=== PATIENT | male | born 1955 | race Caucasian/White ===

== ENCOUNTER 2017-03-29 13:20 | Inpatient (IN) | payer OTHER ==
[~2017-03-29 13:20] MED LIST: FAMOTIDINE 20 MG TABLET PO PRN; HYDROcod/ACETAM 5/325 MG TABLET PO PRN; ONDANSETRON ODT 4 MG TABLET TL PRN; SODIUM CHLORIDE FLUSH 0.9% 10 ML SYRINGE IVP PRN; oxyCODONE 5 MG TABLET PO PRN
[2017-03-29] MEDS ORDERED: HYDROmorphone 1 MG/ML SYRINGE IVP STA ×3 (14:38→22:16)
[2017-03-29] MEDS ORDERED: KETOROLAC 60 MG/2 ML VIAL IVP STA (14:38)
[2017-03-29 14:54] LABS: BASOPHILS % (AUTO) 0.3 %; EOSINOPHILS # (AUTO) 0.1 10^3/uL (0.0-0.7); EOSINOPHILS % (AUTO) 1.6 %; HCT - HEMATOCRIT 39.7 % (42.0-52.0); HGB - HEMOGLOBIN 13.8 g/dL (14.0-18.0); LYMPHOCYTES # (AUTO) 1.3 10^3/uL (1.5-3.5); LYMPHOCYTES % (AUTO) 20.9 %; MEAN CORPUSCULAR HEMOGLOBIN 32.6 pg (27.0-31.0); MEAN CORPUSCULAR HGB CONC 34.8 g/dL (32.0-36.0); MEAN CORPUSCULAR VOLUME 93.6 fL (80.0-94.0); MEAN PLATELET VOLUME 7.9 fL (7.4-11.4); MONOCYTES # (AUTO) 0.7 10^3/uL (0.0-1.0); MONOCYTES % (AUTO) 10.9 %; NEUTROPHILS # (AUTO) 4.2 10^3/uL (1.5-6.6); NEUTROPHILS % (AUTO) 66.3 %; RED BLOOD COUNT 4.24 10^6/uL (4.70-6.10); RED CELL DISTRIBUTION WIDTH 12.5 % (12.0-15.0); UNCORRECTED WHITE BLOOD COUNT 6.3 x10^3/uL; WHITE BLOOD COUNT 6.3 x10^3/uL (4.8-10.8)
[2017-03-29 15:06] LABS: ALBUMIN/GLOBULIN RATIO 1.2 (1.0-2.2); BILIRUBIN,TOTAL 1.5 mg/dL (0.2-1.0); CALCIUM 9.5 mg/dL (8.5-10.3); POTASSIUM 4.3 mmol/L (3.5-5.0); TOTAL PROTEIN 7.6 g/dL (6.7-8.2)
--- NOTE | 2017-03-29 15:31 | XRAY Preliminary Report ---
Exam: XR Chest 2 View PA/LAT IMPRESSION: Small left pleural effusion and mild left base airspace disease which could represent ate lectasis or pneumonia. [facility] SITE ID: [id number]
--- NOTE | 2017-03-29 15:33 | XRAY Report ---
EXAM: CHEST RADIOGRAPHY EXAM DATE: 03/29/2017 03:10 PM. CLINICAL HISTORY: LEFT SIDED CHEST PAIN. COMPARISON: None. TECHNIQUE: 2 views. FINDINGS: Lungs/Pleura: Small left pleural effusion and mild left base airspace disease. Mediastinum: Heart and mediastinal contours are unremarkable. IMPRESSION: Small left pleural effusion and mild left base airspace disease which could represent ate lectasis or pneumonia. [facility] Referring Provider Line: [phone] SITE ID: [id number]
[2017-03-29] MEDS ORDERED: KETOROLAC 30 MG/ML VIAL ONE (16:01)
[2017-03-29] MEDS ORDERED: IOPAMIDOL-300 100 ML VIAL IVP ONE (16:52)
--- NOTE | 2017-03-29 17:17 | CT Preliminary Report ---
Exam: CT Chest Angio (PE) IMPRESSION: 1. Positive for multiple subsegmental emboli, right more than left. Overall [id number] amount of clot burden. 2. Small bilateral pleural based densities, probably atelectatic, with small left pleural effusion. 3. Mildly prominent ascending thoracic aorta. [facility] The above critical findings were discussed with Dr. Bustamante by Dr. Jamie Starr at 17:15 hrs on 03/29/17. SITE ID: [id number]
--- NOTE | 2017-03-29 17:19 | CT Report ---
EXAM: CT ANGIOGRAM CHEST EXAM DATE: 03/29/2017 04:39 PM. CLINICAL HISTORY: Pain, short of breath. COMPARISON: None. TECHNIQUE: Routine helical imaging was performed through the chest in the pulmonary arterial phase. I V Contrast: 80 cc Isovue 300. Reconstructions: Sagittal, coronal, and 3-D MIP. In accordance with CT protocol optimization, one or more of the following dose reduction techniques w ere utilized for this exam: automated exposure control, adjustment of mA and/or KV based on patient s ize, or use of iterative reconstructive technique. FINDINGS: Pulmonary Arteries: Diagnostic quality: Adequate through the segmental arteries. Multiple subsegmental emboli, predominan tly on the right, with small amount of left lower lobe involvement as well. No large or central lesio ns. RV/LV is within normal limits. There is no interventricular septal bowing. There is mild reflux of co ntrast material in the IVC. Lungs/Pleura: Small bilateral pleural-based densities, left more than right. Otherwise unremarkable. Small left pleural effusion. No right effusion or pneumothorax. Mediastinum: Normal overall heart size. No pericardial effusion. No coronary artery calcification. No definite lymphadenopathy. Thoracic Aorta: Mild prominence of ascending thoracic aorta measuring 3.7 cm. Upper Abdomen: Unremarkable. Other: None. IMPRESSION: 1. Positive for multiple subsegmental emboli, right more than left. Overall [id number] amount of clot burden. 2. Small bilateral pleural based densities, probably atelectatic, with small left pleural effusion. 3. Mildly prominent ascending thoracic aorta. [facility] The above critical findings were discussed with Dr. Bustamante by Dr. Jamie Starr at 17:15 hrs on 03/29/17. Referring Provider Line: [phone] SITE ID: [id number]
[2017-03-29] MEDS ORDERED: ENOXAPARIN 100 MG/ML SYRINGE SUBQ STA (17:36)
[2017-03-29] MEDS ORDERED: SODIUM CHLORIDE 0.9% 1,000 ML IV ONE (18:04)
--- NOTE | 2017-03-29 18:08 | ED Physician Documentation ---
History of Present Illness - Stated complaint Stated Complaint: ACUTE L SIDE PAIN,DIFF BREATHING - Chief complaint Chief Complaint: Cardiac - History obtained from History obtained from: Patient, Family - Additonal information Additional information: This patient is a 61-year-old male who presents complaint of left-sided chest pain. He had the onset at this point pain on Wednesday. It is a pleuritic pain worse with taking a deep breath. He feels as if he cannot take in adequate amount of air as well. There is no pressure heavy component he has not had any nausea, vomiting, constipation, diarrhea or lower urinary symptoms. There is no complaint of productive cough that he does not have a fever. He had pleurisy many years ago and it feels similar. The patient drove from [place] to [facility] before having the onset of symptoms on Wednesday. He did fly back to [place] over the weekend then returned also by airplane. He denies any leg pain or swelling. He has no significant past medical history. Review of systems: For pertinent positive and negatives in the review of systems please see the history of present illness, otherwise all other systems have been reviewed and are negative. Dragon disclaimer: Parts of this medical record were created using voice recognition technology. Because of the inherent limitations of this system, occasional same sounding word substitutions do occur and persist despite proofreading. Please read the document for context. Review of Systems Constitutional: denies: Fever, Chills, Myalgias Cardiac: reports: Chest pain / pressure Respiratory: reports: Dyspnea. denies: Hemoptysis, Wheezing Neurologic: denies: Syncope PD PAST MEDICAL HISTORY - Past Medical History Past Medical History: Yes Cardiovascular: None Respiratory: Other Neuro: Multiple sclerosis Endocrine/Autoimmune: None GI: None : None HEENT: None Psych: None Musculoskeletal: None Derm: Other Other Past Medical History: Pt with hx of diagnosis of multiple sclerosis, however has not had symptoms since 1993. Hx of shingles - not active. - Past Surgical History Past Surgical History: Yes HEENT: Other - Social History Does the pt smoke?: No Smoking Status: Never smoker Does the pt drink ETOH?: Yes ETOH Use: Wine, Beer, Liquor Does the pt have substance abuse?: No - Immunizations Immunizations are current?: Yes - POLST Patient has POLST: No PD ED PE NORMAL - General General: Alert and oriented X 3, No acute distress, Well developed/nourished - HEENT HEENT: Atraumatic, PERRL, EOMI - Neck Neck: Supple, no meningeal sign - Cardiac Cardiac: RRR, No murmur, No gallop, No rub - Respiratory Respiratory: No respiratory distress, Clear bilaterally - Abdomen Abdomen: Normal bowel sounds, Soft, Non tender, Non distended - Rectal Rectal: Deferred - Derm Derm: Normal color, Warm and dry - Extremities Extremities: No deformity, No tenderness to palpate, Normal ROM s pain - Neuro Neuro: Alert and oriented X 3, No motor deficit, No sensory deficit Results - Vitals Vitals: Vital Signs - 24 hr 03/29/17 03/29/17 13:41 16:22 Temperature 36.7 C 36.7 C Heart Rate 57 L 53 L Respiratory 20 16 Rate Blood Pressure 127/80 129/83 H O2 Saturation 100 100 Oxygen O2 Source Room air - Labs Labs: Laboratory Tests 03/29/17 03/29/17 03/29/17 14:45 14:45 14:45 WBC 6.3 RBC 4.24 L Hgb 13.8 L Hct 39.7 L MCV 93.6 MCH 32.6 H MCHC 34.8 RDW 12.5 Plt Count 123 L MPV 7.9 Neut # 4.2 Lymph # 1.3 L [place] # 0.7 Eos # 0.1 Baso # 0.0 Absolute Nucleated RBC 0.00 Nucleated RBCs 0.0 D-Dimer Sodium 138 Potassium 4.3 Chloride 103 Carbon Dioxide 27 Anion Gap 8.0 BUN 13 Creatinine 1.0 Estimated GFR (MDRD) 76 L Glucose 100 Calcium 9.5 Total Bilirubin 1.5 H AST 48 H ALT 51 Alkaline Phosphatase 64 Troponin I < 0.04 Total Protein 7.6 Albumin 4.2 Globulin 3.4 Albumin/Globulin Ratio 1.2 Lipase 24 03/29/17 14:45 WBC RBC Hgb Hct MCV MCH MCHC RDW Plt Count MPV Neut # Lymph # [place] # Eos # Baso # Absolute Nucleated RBC Nucleated RBCs D-Dimer 597.9 H Sodium Potassium Chloride Carbon Dioxide Anion Gap BUN Creatinine Estimated GFR (MDRD) Glucose Calcium Total Bilirubin AST ALT Alkaline Phosphatase Troponin I Total Protein Albumin Globulin Albumin/Globulin Ratio Lipase PD MEDICAL DECISION MAKING - ED course ED course: She is a pleasant healthy 61-year-old male with no past medical or surgical history other than pleurisy many years ago. He presents with headache left- sided chest pain mild shortness of breath with worsening of pain with taking a deep breath. He did have a long car drive from [place] to [facility] before the onset of his pain and also had another history of stasis with an air flight from [place] to [place] and back this weekend. The patient is splinting on examination and appears uncomfortable. Initial EKG showed a erratic baseline and was read by the computer as atrial fibrillation however repeat EKG demonstrates normal sinus rhythm with a normal AK, QRS, QT interval without ST segment elevation there is no S the elevation depression or T-wave inversion. Blood work on this patient for the most part is unremarkable his d-dimer was not negative he is deemed to be moderate risk based on the history of his pain complaint and a history of stasis so a CT angiogram of the chest was performed the CT angiogram shows multiple subsegmental emboli more in the right and left and a small to moderate amount of clot burden. There are bilateral pleural effusions noted densities noted with a small left pleural effusion which is probably the cause of his pain. The patient was given fluid hydration pain medications and started on Lovenox I am attempting to hear back from the hospitalist. They have been called about this patient approximately an hour ago. Disposition: Admission Clinical impression: 1. Left-sided pleuritic chest pain 2. New diagnosis of multiple subsegmental pulmonary emboli probably related to stasis Departure - Departure Disposition: [facility] DC/Xfer Clinical Impression: Chest pain Qualifiers: Chest pain type: pleurodynia Qualified Code(s): R07.81 - Pleurodynia Pulmonary embolism Qualifiers: Pulmonary embolism type: other Chronicity: acute Acute cor pulmonale presence: without acute cor pulmonale Qualified Code(s): I26.99 - Other pulmonary embolism without acute cor pulmonale Condition: Serious
[2017-03-29] MEDS ORDERED: ENOXAPARIN 100 MG/ML SYRINGE SUBQ ONE (18:19)
[2017-03-29] MEDS ORDERED: HYDROmorphone 1 MG/ML SYRINGE ONE ×2 (18:20→22:20)
--- NOTE | 2017-03-29 19:47 | ED Physician Documentation ---
ED Addendum - Addendum Addendum: 03/29/17 [id number] initially treated by Dr. Bustamante, found to have PE. See his note, treated with Lovenox. He had some trouble reaching the hospitalist, we will call them again after shift changed at approximately 745. 03/29/17 20:[address] Clements shortly after that.
[2017-03-29] MEDS ORDERED: SODIUM CHLORIDE FLUSH 0.9% 10 ML SYRINGE IVP ONE (22:22)
[2017-03-29] MEDS ORDERED: SODIUM CHLORIDE FLUSH 0.9% 10 ML SYRINGE IVP PRN (23:13)
[2017-03-29] MEDS ORDERED: ONDANSETRON ODT 4 MG TABLET TL PRN (23:22)
[2017-03-29] MEDS ORDERED: FAMOTIDINE 20 MG TABLET PO PRN (23:22)
[2017-03-29] MEDS ORDERED: HYDROcod/ACETAM 5/325 MG TABLET PO PRN (23:22)
[2017-03-29] MEDS ORDERED: oxyCODONE 5 MG TABLET PO PRN (23:22)
[2017-03-29] MEDS ORDERED: traMADol 50 MG TABLET PO PRN (23:27)
--- NOTE | 2017-03-30 00:20 | HISTORY & PHYSICAL EXAMINATION ---
Chief Complaint - Chief Complaint Chief Complaint: pleuritic chest pain, SOB History of Present Illness - Admitted From Admitted From:: ED - History Obtained From Records Reviewed: YES History obtained from: patient Exam Limitations: none - History of Present Illness HPI Comment/Other: 61yoM with h/o inactive MS, last flare in 1993. Pt lives in [place], but has family on [facility] and was visiting for a family reunion. He drove from [place] to [place] without stopping (~6hrs) last , then flew back and forth to [place] over the weekend. Wednesday he had onset of chest pain with dyspnea, worse with taking deep breath. He has not leg pain or swelling. no fever, chills, no nausea, no LH/dizziness. no recent illness or sick contacts. He has no active bleeding, no h/o GIB. no personal or family h/o clotting disorders Review of Systems - Constitutional Constitutional: denies: Fever, Chills, Weakness, Night sweats - Eyes Eyes: denies: Blurred vision, Dipolpia - Ears, Nose & Throat Ears, Nose & Throat: denies: Tinnitus, Vertigo, Nasal congestion, Dental pain - Cardiovascular Cariovascular: reports: Exertional dyspnea. denies: Irregular heart rate, Palpitations, Chest pain, Lightheadedness, Syncope - Respiratory Respiratory: reports: SOB with exertion. denies: Cough, Sputum production - Gastrointestinal Gastrointestinal: denies: Abdominal pain, Constipation, Diarrhea, Black stools, Bloody stools, Nausea, Vomiting - Genitourinary Genitourinary: denies: Dysuria, Hematuria - Musculoskeletal Musculoskeletal: denies: Muscle pain, Joint pain - Integumentary Integumentary: denies: Rash, Pruritis - Neurological Neurological: denies: Headache, Dizziness, Numbness - All Other Systems All Other Systems: reports: Reviewed and negative History - Past Medical History Cardiovascular: reports: None Neuro: reports: Multiple sclerosis Endocrine/Autoimmune: reports: None GI: reports: None : reports: None HEENT: reports: None Psych: reports: None Musculoskeletal: reports: None Derm: reports: Other MRSA Hx?: No Other Past Medical History: Pt with hx of diagnosis of multiple sclerosis, however has not had symptoms since 1993. Hx of shingles - not active. - Past Surgical History HEENT: reports: Other - Family & Social History Family History: Mother: , Father: Alzheimer's Disease, Sister: Alive and Well, Brother: Alive and Well Family History Comment/Other: mom of siderosis. no family history fo bleeding or clotting disorders, no h /o miscarriages Living arrangement: At home Living Situation: With spouse/s.o. Social History Notes: , 4 kids. no pets. works as security architect - Substance History Use: Uses substance without health or social issues: Alcohol (2 drinks / day, no h/o tobacco use, no recreational drug use) Abuse: Recurrent use of substance despite neg consequences: NONE - POLST Patient has POLST: No Meds/Allgy - Home Medications Home Medications: Ambulatory Orders Medication Instructions Recorded Confirmed Tadalafil [Cialis] mg PO PRN PRN 03/30/17 - Allergies Allergies/Adverse Reactions: Allergies Allergy/AdvReac Type Severity Reaction Status Date / Time No Known Drug Allergies Allergy Verified 03/29/17 22:16 Exam - Vital Signs Reviewed Vital Signs: Yes Vital Signs: Vital Signs x48h Pulse Resp BP Pulse Ox 03/29/17 23:35 55 L 16 119/69 95 - Physical Exam General Appearance: positive: No acute distress Eyes Bilateral: positive: PERRL, EOMI, Conjunctivae nml, No scleral icterus ENT: positive: Pharynx nml, No signs of dehydration. negative: Oral lesions, Dry mucous membranes Neck: positive: Thyroid nml. negative: Thyromegaly, Lymphadenopathy (R), Lymphadenopathy (L), Stiff neck Respiratory: positive: Breath sounds nml, Other (chest wall tender to palpation) . negative: Wheezes, Rales, Rhonchi Cardiovascular: positive: Regular rate & rhythm, No murmur, No gallop. negative : JVD present Peripheral Pulses: positive: 2+ Abdomen: positive: Non-tender, No distention. negative: Guarding, Rebound, Hepatomegaly Back: negative: CVA tenderness (R), CVA tenderness (L) Skin: positive: Color nml, No rash, Warm, Dry Extremities: positive: Non-tender, Full ROM, No pedal edema. negative: Calf tenderness, Joint swelling Neurologic/Psychiatric: positive: Oriented x3, Motor nml, Sensation nml Conclusion/Plan - Lab Results Lab results reviewed: Yes Fish Bones: 03/29/17 14:45 03/29/17 14:45 Other Lab Results: D-dimer 597.9 trop <0.04 lipase 24 - Diagnostic Imaging Results Diagnostic Imaging Results: positive: Final report reviewed Diagnostic Imaging Results Comments: CXR - small L pleural effusion, possbile baslar infiltrate CTA - multisegmental PE b/l R>L, no central clot, small pleural based densities , no effusions, no pneumothorax - EKG Results EKG Interpreted Independently: Yes EKG Comparison: No prior EKG EKG Findings: EKG - sinsu at 54, non-specific changes Issues/Core Measures - Anticipated LOS Anticipated Stay Length: 2 or more midnights - Issues Hospital Issues and Management Plan: 1. B/L PE in setting of long car ride and air travel - anticoagulation with coumadin for now, bridge with lovenox until therapeutic INR (goal 2-3) - consider factor Xa inhibitor due to pts schedule - pain control 2. borderline low plts - monitor while on lovenox 3. Elevated bili and AST - monitor as starting treatment 4. Dispo - home once therapeutic INR - anticipate hospital LOS <96hr - DVT/VTE - Prophylaxis VTE/DVT Device ordered at admit?: No Not Ordered - Medical Reason: Not indicated VTE/DVT Prophylaxis med ordered at admit?: Yes
[2017-03-30] MEDS: traMADol 50 MG TABLET PO PRN ×2 (04:22→10:58)
[2017-03-30] MEDS: SODIUM CHLORIDE FLUSH 0.9% 10 ML SYRINGE IVP SCH ×2 (04:32→16:15)
[2017-03-30 05:48] LABS: BASOPHILS % (AUTO) 0.2 %; EOSINOPHILS % (AUTO) 0.3 %; HCT - HEMATOCRIT 38.4 % (42.0-52.0); HGB - HEMOGLOBIN 13.2 g/dL (14.0-18.0); LYMPHOCYTES # (AUTO) 0.6 10^3/uL (1.5-3.5); LYMPHOCYTES % (AUTO) 8.8 %; MEAN CORPUSCULAR HEMOGLOBIN 32.8 pg (27.0-31.0); MEAN CORPUSCULAR HGB CONC 34.4 g/dL (32.0-36.0); MEAN CORPUSCULAR VOLUME 95.2 fL (80.0-94.0); MEAN PLATELET VOLUME 9.1 fL (7.4-11.4); MONOCYTES # (AUTO) 0.5 10^3/uL (0.0-1.0); MONOCYTES % (AUTO) 7.3 %; NEUTROPHILS # (AUTO) 5.7 10^3/uL (1.5-6.6); NEUTROPHILS % (AUTO) 83.4 %; RED BLOOD COUNT 4.03 10^6/uL (4.70-6.10); RED CELL DISTRIBUTION WIDTH 12.6 % (12.0-15.0); UNCORRECTED WHITE BLOOD COUNT 6.8 x10^3/uL; WHITE BLOOD COUNT 6.8 x10^3/uL (4.8-10.8)
[2017-03-30 05:53] LABS: INR 1.1 (0.8-1.2); PT - PROTHROMBIN TIME 12.5 secs (9.9-12.6)
[2017-03-30] MEDS ORDERED: SODIUM CHLORIDE FLUSH 0.9% 10 ML SYRINGE IVP SCH (06:00)
[2017-03-30 06:04] LABS: ALBUMIN/GLOBULIN RATIO 1.2 (1.0-2.2); BILIRUBIN,TOTAL 1.3 mg/dL (0.2-1.0); BUN - BLOOD UREA NITROGEN 15 mg/dL (6-20); CARBON DIOXIDE - CO2 25 mmol/L (21-32); CHLORIDE 105 mmol/L (101-111); CHOLESTEROL 163 mg/dL; CREATININE 0.8 mg/dL (0.6-1.2); GFR - MDRD 98 (>89); GLUCOSE 143 mg/dL (70-100); HDL CHOLESTEROL 54 mg/dL; LDL/HDL RATIO 1.8 (<3.6); POTASSIUM 3.9 mmol/L (3.5-5.0); SODIUM 139 mmol/L (135-145); TOTAL PROTEIN 6.9 g/dL (6.7-8.2); TRIGLYCERIDES 68 mg/dL; VLDL CHOLESTEROL 14 mg/dL
[2017-03-30] MEDS ORDERED: ENOXAPARIN 100 MG/ML SYRINGE SUBQ SCH ×2 (09:00)
[2017-03-30] MEDS ORDERED: POLYETHYLENE GLYCOL 3350 17 GM PACKET PO SCH ×2 (09:00)
--- NOTE | 2017-03-30 14:42 | Discharge Plan ---
Discharge Plan Disposition: 01 Home, Self Care Condition: Fair Prescriptions: Oxycodone HCl/Acetaminophen [Percocet 5-325 mg Tablet] 1 tab PO Q6H PRN #15 tablet PRN Reason: Pain Rivaroxaban [Xarelto] 15 mg PO BID #41 tablet Rivaroxaban [Xarelto] 20 mg PO DAILY #60 tablet Diet: Regular Activity Restrictions: Activity as Tolerated (Rest up for 1-2 weeks then slowly start exercising like normal again.) Shower Restrictions: No Driving Restrictions: No Weight Bearing: Full Weight Additional Instructions or Follow Up instructions: You presented to the hospital with chest pain on the left side and were found to have pulmonary emboli in your bilateral lungs which were causing your symptoms. We have prescribed you a blood thinner which you will need to take for the next 6 months until your blood clots resolve. Please follow up with your primary care physician once you return to [place]. No Smoking: If you smoke, Please STOP! Call for help.
--- NOTE | 2017-03-30 14:56 | DISCHARGE SUMMARY ---
Discharge Summary Admit Date: 03/29/17 Discharge Date: 03/30/17 Discharging Provider: Baldemar Slaughter MD Code Status: Attempt Resuscitation Condition at Discharge: Fair Discharge Disposition: 01 Home, Self Care - DIAGNOSES Admission Diagnoses: 1. Bilateral Pulmonary Embolism 2. Thrombocytopenia 3. Elevated LFTs 4. Multiple Sclerosis - HPI History of Present Illness: 61yoM with h/o inactive MS, last flare in 1993. Pt lives in [place], but has family on [facility] and was visiting for a family reunion. He drove from [place] to [place] without stopping (~6hrs) last , then flew back and forth to [place] over the weekend. Wednesday he had onset of chest pain with dyspnea, worse with taking deep breath. He has not leg pain or swelling. no fever, chills, no nausea, no LH/dizziness. no recent illness or sick contacts. He has no active bleeding, no h/o GIB. no personal or family h/o clotting disorders. - HOSPITAL COURSE Hospital Course: Patient is a 61-year-old gentleman with a past medical history significant for multiple sclerosis who presents to the emergency department with a chief complaint of left sided chest pain. Patient described the chest pain was worse with inspiration. He stated that he had recently been on a long car trip from [place] to [facility] and also been on several trips on airplane recently. The patient initially underwent a chest x-ray in the emergency department which showed a small left pleural effusion. The patient's d-dimer was elevated at 597 his troponin was negative an EKG showed nonspecific changes. The patient underwent a CT angiogram of his thorax and this revealed multi-segmental pulmonary emboli bilaterally right worse than left with no central clot, small pleural based densities, no effusions, no pneumothorax. The patient was admitted to the medical ferrer for his pulmonary emboli. The patient was not hypoxic there was concern given his borderline low platelets that he may not tolerate Lovenox. The patient however was switched to Xarelto after discussion about cost and followup needs with Coumadin. The patient was discharged home with the Xarelto 50 mg twice a day for 21 days then 20 mg for 6 months. The patient was told to followup with his primary care physician once he returns to [place]. He was told to rest for the first 1-2 weeks and then slowly increase his exertion and exercise back to his baseline. The patient was also prescribed Percocet for his chest pain for a short duration. I had a long discussion with the patient and his regarding the use of anticoagulation, the risks of bleeding and the anticipated course for his pulmonary embolism. The patient appears to have a provoked PE and therefore will only require 6 months of anticoagulation. The patient should have a age-appropriate cancer screening and workup for hypercoagulable disorders as an outpatient. - ALLERGIES Allergies/Adverse Reactions: Allergies Allergy/AdvReac Type Severity Reaction Status Date / Time No Known Drug Allergies Allergy Verified 03/29/17 22:16 - MEDICATIONS Home Medications: Ambulatory Orders Medication Instructions Recorded Confirmed Oxycodone HCl/Acetaminophen 1 tab PO Q6H PRN #15 tablet 03/30/17 [Percocet 5-325 mg Tablet] Rivaroxaban [Xarelto] 15 mg PO BID #41 tablet 03/30/17 Rivaroxaban [Xarelto] 20 mg PO DAILY #60 tablet 03/30/17 Tadalafil [Cialis] mg PO PRN PRN 03/30/17 - PHYSICAL EXAM AT DISCHARGE General Appearance: positive: No acute distress, Alert Eyes Bilateral: positive: Normal inspection, PERRL, EOMI, No lid inflammation, Conjunctivae nml, No scleral icterus ENT: positive: ENT inspection nml, Pharynx nml, No signs of dehydration. negative: Purulent nasal drainage, Pharyngeal erythema, Oral lesions Neck: positive: Nml inspection, Thyroid nml, No JVD, Trachea midline. negative : Thyromegaly, Lymphadenopathy (R), Lymphadenopathy (L), Carotid bruit, Tracheal deviation Respiratory: positive: Chest non-tender, Rales (Bibasilar), Rhonchi ( Bilaterally worse on right). negative: Wheezes Cardiovascular: positive: Regular rate & rhythm, No murmur, No gallop Peripheral Pulses: positive: 2+ Abdomen: positive: Non-tender, No organomegaly, Nml bowel sounds, No distention. negative: Guarding, Rebound, Hepatomegaly Back: positive: Nml inspection. negative: CVA tenderness (R), CVA tenderness (L ) Skin: positive: Color nml, No rash, Warm. negative: Cyanosis, Pallor Extremities: positive: Non-tender, Full ROM, Nml appearance, No pedal edema Neurologic/Psychiatric: positive: Oriented x3, CN's nml (2-12), Motor nml, Sensation nml, Mood/affect nml - LABS Result Diagrams: 03/30/17 05:18 03/30/17 05:18 Other Lab Results: Laboratory Results WBC 6.8 x10^3/uL (4.8-10.8) 03/30/17 05:18 RBC 4.03 10^6/uL (4.70-6.10) L 03/30/17 05:18 Hgb 13.2 g/dL (14.0-18.0) L 03/30/17 05:18 Hct 38.4 % (42.0-52.0) L 03/30/17 05:18 MCV 95.2 fL (80.0-94.0) H 03/30/17 05:18 MCH 32.8 pg (27.0-31.0) H 03/30/17 05:18 MCHC 34.4 g/dL (32.0-36.0) 03/30/17 05:18 RDW 12.6 % (12.0-15.0) 03/30/17 05:18 Plt Count 119 10^3/uL (130-450) L 03/30/17 05:18 MPV 9.1 fL (7.4-11.4) 03/30/17 05:18 Neut # 5.7 10^3/uL (1.5-6.6) 03/30/17 05:18 Lymph # 0.6 10^3/uL (1.5-3.5) L 03/30/17 05:18 [place] # 0.5 10^3/uL (0.0-1.0) 03/30/17 05:18 Eos # 0.0 10^3/uL (0.0-0.7) 03/30/17 05:18 Baso # 0.0 10^3/uL (0.0-0.1) 03/30/17 05:18 Absolute Nucleated RBC 0.00 x10^3/uL 03/30/17 05:18 Nucleated RBCs 0.0 /100WBC 03/30/17 05:18 PT 12.5 secs (9.9-12.6) 03/30/17 05:18 INR 1.1 (0.8-1.2) 03/30/17 05:18 D-Dimer 597.9 ng/mL (200.0-255.0) H 03/29/17 14:45 Sodium 139 mmol/L (135-145) 03/30/17 05:18 Potassium 3.9 mmol/L (3.5-5.0) 03/30/17 05:18 Chloride 105 mmol/L (101-111) 03/30/17 05:18 Carbon Dioxide 25 mmol/L (21-32) 03/30/17 05:18 Anion Gap 9.0 (6-13) 03/30/17 05:18 BUN 15 mg/dL (6-20) 03/30/17 05:18 Creatinine 0.8 mg/dL (0.6-1.2) 03/30/17 05:18 Estimated GFR (MDRD) 98 (>89) 03/30/17 05:18 Glucose 143 mg/dL (70-100) H 03/30/17 05:18 Calcium 9.0 mg/dL (8.5-10.3) 03/30/17 05:18 Total Bilirubin 1.3 mg/dL (0.2-1.0) H 03/30/17 05:18 AST 32 IU/L (10-42) 03/30/17 05:18 ALT 41 IU/L (10-60) 03/30/17 05:18 Alkaline Phosphatase 65 IU/L (42-121) 03/30/17 05:18 Troponin I < 0.04 ng/mL (<0.49) 03/29/17 14:45 Total Protein 6.9 g/dL (6.7-8.2) 03/30/17 05:18 Albumin 3.8 g/dL (3.2-5.5) 03/30/17 05:18 Globulin 3.1 g/dL (2.1-4.2) 03/30/17 05:18 Albumin/Globulin Ratio 1.2 (1.0-2.2) 03/30/17 05:18 Triglycerides 68 mg/dL (-149) 03/30/17 05:18 Cholesterol 163 mg/dL (-199) 03/30/17 05:18 LDL Cholesterol, Calc 95 mg/dL (-129) 03/30/17 05:18 VLDL Cholesterol 14 mg/dL 03/30/17 05:18 HDL Cholesterol 54 mg/dL (60-) L 03/30/17 05:18 LDL/HDL Ratio 1.8 (<3.6) 03/30/17 05:18 Cholesterol/HDL Ratio 3.0 (<5.0) 03/30/17 05:18 Lipase 24 U/L (22-51) 03/29/17 14:45 - DIAGNOSTIC IMAGING Diagnostic Imaging Results: Final report reviewed Diagnostic Imaging Results Comments: Chest x-ray: Small left pleural effusion, possible basilar infiltrate CT angiogram thorax: Positive for multiple subsegmental emboli, right more than left. Overall small to moderate amount of clot burden. Small bilateral pleural based densities, probably atelectasis, with small left pleural effusion. Mildly prominent ascending thoracic aorta. - TIME SPENT Time Spent in Discharge (Minutes): 60
[2017-03-30 15:58] VITALS: BP 131/71
[2017-03-30] MEDS ORDERED: RIVAROXABAN 15 MG TABLET PO SCH (16:00)
[2017-03-30] MEDS ORDERED: WARFARIN 5 MG TABLET PO SCH ×2 (21:00)
== END 2017-03-30 16:26 | disposition home or self-care (01) | DRG 176 ==
LOC: ED 13:20 → MS3 23:15 → ED 23:50
PROVIDERS: ADMIT Internal Medicine; ATTEND Internal Medicine
DX: I26.99 Other pulmonary embolism without acute cor pulmonale (principal); D69.6 Thrombocytopenia, unspecified; R94.5 Abnormal results of liver function studies; G35 Multiple sclerosis
CPT/HCPCS: 36415; 71020; 71275; 80053; 80061; 83690; 84484; 85025; 85379; 85610; 93005; 96361; 96372; 96374; 96375; 96376; 99284